=== PATIENT | female | born 1990 | race Caucasian/White ===

== ENCOUNTER 2018-06-17 16:10 | Emergency (ER) | payer OTHER ==
[2018-06-17 16:28] VITALS: BP 118/83
--- NOTE | 2018-06-17 16:40 | UC ---
Complaint Female HPI - HPI Summary HPI Summary: Pt presents with c/o sudden onset of urinary frequency, urgency, pelvic discomfort and pressure X 3 days. Pt denies any unusual vaginal discharge, fever or chills. - History Of Current Complaint Chief Complaint: UCGU Stated Complaint: URINARY Time Seen by Provider: 06/17/18 16:31 Hx Obtained From: Patient Hx Last Menstrual Period: 05/2018 ?: No Onset/Duration: Sudden Onset, Lasting Days, Still Present Timing: Constant Severity Initially: Mild Severity Currently: Mild Pain Intensity: 0 Character: Dull, Cramping Aggravating Factor(s): Urination Associated Signs And Symptoms: Positive: Negative - Risk Factors Ectopic Risk Factor: Negative Ovarian Torsion Risk Factor: Reproductive Age - Allergies/Home Medications Allergies/Adverse Reactions: Allergies Allergy/AdvReac Type Severity Reaction Status Date / Time No Known Allergies Allergy Verified 06/17/18 16:26 Home Medications: Home Medications Azo Urinary Relief 1 tab PO ONCE 06/17/18 [History Confirmed 06/17/18] PMH/Surg Hx/FS Hx/Imm Hx Previously Healthy: Yes - Surgical History Surgical History: Yes Surgery Procedure, Year, and Place: Left shoulder surgery 2012 - Family History Known Family History: Positive: Cardiac Disease - Social History Occupation: Employed Full-time Lives: With Family Alcohol Use: Occasionally Substance Use Type: None Smoking Status (MU): Never Smoked Tobacco Have You Smoked in the Last Year: No Review of Systems All Other Systems Reviewed And Are Negative: Yes Constitutional: Positive: Negative Skin: Positive: Negative Eyes: Positive: Negative ENT: Positive: Negative Respiratory: Positive: Negative Cardiovascular: Positive: Negative Gastrointestinal: Positive: Abdominal Pain Genitourinary: Positive: Frequency, Urgency Motor: Positive: Negative Neurovascular: Positive: Negative Musculoskeletal: Positive: Negative Neurological: Positive: Negative Psychological: Positive: Negative Is Patient Immunocompromised?: No Physical Exam Triage Information Reviewed: Yes Appearance: Well-Appearing Vital Signs: Initial Vital Signs Temp 98.3 F 06/17/18 16:24 Pulse 82 06/17/18 16:24 Resp 16 06/17/18 16:24 BP 118/83 06/17/18 16:24 Pulse Ox 99 06/17/18 16:24 Vital Signs Reviewed: Yes Eye Exam: Normal ENT Exam: Normal Dental Exam: Normal Neck exam: Normal Respiratory Exam: Normal Cardiovascular Exam: Normal Abdominal Exam: Normal Abdomen Description: Positive: Nontender Musculoskeletal Exam: Normal Neurological Exam: Normal Psychological Exam: Normal Skin Exam: Normal Complaint Female Dx - Course Course Of Treatment: pt took OTC AZO last eveing. and urine sample today was still bright orange/red - Differential Dx/Diagnosis Differential Diagnosis/HQI/PQRI: Urinary Tract Infection Provider Diagnosis: Urinary frequency, Pelvic pain Discharge - Sign-Out/Discharge Documenting (check all that apply): Patient Departure All imaging exams completed and their final reports reviewed: No Studies - Discharge Plan Condition: Stable Disposition: HOME Prescriptions: Nitrofurantoin Monohyd/M-Cryst [Macrobid 100 mg Capsule] 100 mg PO Q12H #14 cap Patient Education Materials: Pelvic Pain in Women (ED) Referrals: [facility] [Outside] - If Needed No Primary Care Phys,NOPCP [Primary Care Provider] - - Billing Disposition and Condition Condition: STABLE Disposition: Home - Attestation Statements Provider Attestation: Per institutional requirements, I have reviewed the chart, however, I was not consulted specifically or made aware of this patient by the midlevel provider. I did not personally evaluate, interact with , or disposition this patient.
== END 2018-06-17 16:44 | disposition home or self-care (01) ==
LOC: UCCORT 16:10
DX: R35.0 Frequency of micturition (principal); R10.2 Pelvic and perineal pain; R39.15 Urgency of urination; R29.898 Other symptoms and signs involving the musculoskeletal system; R10.9 Unspecified abdominal pain
CPT/HCPCS: 87086; 99202; G0463

== ENCOUNTER 2019-04-21 11:36 | Emergency (ER) | payer OTHER ==
[2019-04-21 13:04] VITALS: BP 110/80
--- NOTE | 2019-04-21 13:53 | UC ---
Respiratory Complaint HPI - HPI Summary HPI Summary: 28 yo woman, previously well, with history of cough at night to the point of vomiting. She had onset of congesiton with cough several weeks ago, and although she has no currentl fever or systemic illness, she has severe cough which is disruptive of sleep. She went to walk in clinic in [place] today and was advised to go to the ER for evaluation of potential PE, but she did not feel that this was right and comes here for assessment. She has no chest pain, dyspnea at rest, tachycardia, hypoxia or fever. She is most frustrated by persistent bouts of coughing whiich seem related to sinus drainage. Persistent use of pseudoephedrine has not helped. Short of breath only with coughing. no fever, feels well, cough disabling and not sleeping.She has been working. Use of albuterol nebs has helped. she has no past hx of asthma, but for some reason has a home nebulizer unit. - History of Current Complaint Chief Complaint: UCRespiratory Stated Complaint: CONGESTION,SINUS COMPLAINT, SOB Time Seen by Provider: 04/21/19 13:42 Hx Obtained From: Patient Hx Last Menstrual Period: ~03/31/2019 Onset/Duration: Gradual Onset, Lasting Weeks - 2 Timing: Intermittent Episodes Severity Initially: Moderate Severity Currently: Moderate Pain Intensity: 0 Character: Cough: Nonproductive Alleviating Factors: Bronchodilator Associated Signs And Symptoms: Positive: Dyspnea - with bouts of coughing, Nasal Congestion, Sinus Discomfort - Risk Factors Pulmonary Embolism Risk Factors: Oral Contraceptives Cardiac Risk Factors: Negative Pseudomonas Risk Factors: Negative Tuberculosis Risk Factors: Negative - Allergies/Home Medications Allergies/Adverse Reactions: Allergies Allergy/AdvReac Type Severity Reaction Status Date / Time No Known Allergies Allergy Verified 04/21/19 12:58 Home Medications: Home Medications Albuterol 2.5MG/3ML (0.083%)* [Ventolin 2.5 MG/3 ML NEB.AVELINA*] 2.5 mg INH Q6H PRN 04/21/19 [History Confirmed 04/21/19] Azithromycin TAB* [Zithromax TAB (Z-OHWARD) 250 mg #6 tabs] 2 tab PO .TODAY, THEN 1 DAILY 04/21/19 [History Confirmed 04/21/19] Doxylam/PE/Dm/Acetaminophen/GG [Vicks Dayquil/Nyquil Maura] 1 liq PO Q6H PRN [History Confirmed 04/21/19] Norethindr/Eth Estradiol(Nf) [Lo Loestrin Fe (NF)] 1 tab PO DAILY 04/21/19 [ History Confirmed 04/21/19] Pseudoephedrine TAB* [Sudafed TAB*] 60 mg PO ONCE 04/21/19 [History Confirmed ] PMH/Surg Hx/FS Hx/Imm Hx Previously Healthy: Yes - Surgical History Surgical History: Yes Surgery Procedure, Year, and Place: Left shoulder surgery 2012 - Family History Known Family History: Positive: Cardiac Disease - Social History Occupation: Employed Full-time - works at [email or web address] Lives: With Family - Lives with her male partner Alcohol Use: Occasionally Substance Use Type: None Smoking Status (MU): Never Smoked Tobacco Have You Smoked in the Last Year: No Review of Systems All Other Systems Reviewed And Are Negative: Yes Constitutional: Positive: Fatigue Skin: Positive: Negative Eyes: Positive: Negative ENT: Positive: Negative Respiratory: Positive: Shortness Of Breath, Cough Cardiovascular: Negative: Palpitations, Chest Pain Gastrointestinal: Positive: Negative Genitourinary: Positive: Negative Motor: Positive: Negative Neurovascular: Positive: Negative Musculoskeletal: Positive: Negative Neurological: Positive: Negative Psychological: Positive: Negative Is Patient Immunocompromised?: No Physical Exam Triage Information Reviewed: Yes Appearance: Well-Appearing - Tearful due to fatigue and lack of sleep, but looks well, without tachypnea, tachycardia or evidence of hypoxemia. Vital Signs: Initial Vital Signs Temp 98.6 F 04/21/19 12:56 Pulse 86 04/21/19 12:56 Resp 16 04/21/19 12:56 BP 110/80 04/21/19 12:56 Pulse Ox 100 04/21/19 12:56 Eye Exam: Normal ENT: Positive: Pharynx normal, TM dull - bilateral serous fluid Neck: Positive: Supple, Nontender, No Lymphadenopathy Respiratory Exam: Normal Respiratory: Positive: Lungs clear, Normal breath sounds Cardiovascular Exam: Normal Cardiovascular: Positive: RRR, No Murmur Musculoskeletal Exam: Normal Neurological Exam: Normal Psychological Exam: Normal Skin Exam: Normal Respiratory Course/Dx - Course Course Of Treatment: augmentin, prednisone albuterol for relief of cough. Clincally she does not have jsymptoms or pattern of respiratory symptosm suggestive of PE. - Differential Dx/Diagnosis Provider Diagnosis: Sinusitis Discharge ED - Sign-Out/Discharge Documenting (check all that apply): Patient Departure All imaging exams completed and their final reports reviewed: No Studies - Discharge Plan Condition: Stable Disposition: HOME Prescriptions: Albuterol HFA INHALER* [Ventolin HFA Inhaler*] 2 puff INH Q6H PRN #1 mdi PRN Reason: Wheezing Amoxicillin/Clavulanate TAB* [Augmentin TAB 875*] 875 mg PO BID #14 tab Benzonatate CAP* [Tessalon 100 MG CAP*] 100 mg PO TID PRN #30 cap PRN Reason: Cough predniSONE [Prednisone 20 MG TAB] 40 mg PO DAILY #10 tablet Patient Education Materials: Sinusitis (ED) Referrals: No Primary Care Phys,NOPCP [Primary Care Provider] - Additional Instructions: Your cough is likely a result of sinus drainage. Take augmentin for persistent sinusitis, and use prednisone to decrease airway inflammation. use albuterol as needed for cough. A prescription for the cough suppressant tessalon perles has also been sent to help to suppress cough. - Billing Disposition and Condition Condition: STABLE Disposition: Home
== END 2019-04-21 14:14 | disposition home or self-care (01) ==
LOC: UCCORT 11:36
DX: J32.9 Chronic sinusitis, unspecified (principal); R06.02 Shortness of breath
CPT/HCPCS: 99212; G0463